=== PATIENT | female | born 1945 | race Caucasian/White ===

== ENCOUNTER 2018-08-21 01:16 | Emergency (ER) | payer MEDICAID, MEDICARE ==
[2018-08-21] MEDS ORDERED: Morphine 2 mg/ml ISec ONE (01:40)
[2018-08-21 01:43] VITALS: TEMP 97.8
[2018-08-21] MEDS ORDERED: Morphine 2 mg/ml ISec IVP STA (01:43)
--- NOTE | 2018-08-21 01:52 | ED PDOC ---
Arrival/HPI - General Chief Complaint: Abdominal Pain Time Seen by Provider: 08/21/18 01:29 Historian: Patient, Family (Daughter) - History of Present Illness Narrative History of Present Illness (Text): 08/21/18 01:45 A 72 year old female, whose past medical history includes end stage renal disease, hypertension, and a recent kidney transplant in the [place] in March 2018, presents to the emergency department complaining of chest and back pain after taking predisone and cardizem tablets prescribed by her primary care doctor.Discomfort began in the upper abdomen/chest area. Patient also reports she began experiencing nausea and vomiting.Some mild SOB.Patient denies any fever, chills, diarrhea, urinary symptoms, neck pain, headache, dizziness, or any other complaints. Time/Duration: Other (earlier tonight) Symptom Onset: Gradual Symptom Course: Unchanged Activities at Onset: Light Context: Home Past Medical History - Provider Review Nursing Documentation Reviewed: Yes - Infectious Disease Hx of Infectious Diseases: None - Reproductive Menopause: Yes - Cardiac Hx Hypertension: Yes - Pulmonary Hx Respiratory Disorders: No - Neurological Hx Neurological Disorder: No - HEENT Hx HEENT Disorder: Yes Hx Cataracts: Yes (bilateral) - Renal Hx Renal Disorder: Yes - Endocrine/Metabolic Hx Hypothyroidism: Yes - Hematological/Oncological Hx Anemia: Yes - Integumentary Hx Dermatological Disorder: No - Musculoskeletal/Rheumatological Hx Arthritis: Yes Hx Osteoporosis: Yes - Gastrointestinal Hx Gastrointestinal Disorders: Yes Hx Gastroesophageal Reflux: Yes - Genitourinary/Gynecological Hx Genitourinary Disorders: No - Psychiatric Hx Substance Use: No - Surgical History Hx Appendectomy: Yes Hx Coronary Stent: Yes - Anesthesia Hx Anesthesia: Yes Hx Anesthesia Reactions: No Hx Malignant Hyperthermia: No - Suicidal Assessment Feels Threatened In Home Enviroment: No Family/Social History - Physician Review Nursing Documentation Reviewed: Yes Family/Social History: Unknown Family HX Smoking Status: Former Smoker Hx Alcohol Use: No Hx Substance Use: No Hx Substance Use Treatment: No Allergies/Home Meds Allergies/Adverse Reactions: Allergies Penicillins Allergy (Verified 08/21/18 01:44) ANGIOEDEMA Home Medications: Home Meds Medication Instructions Recorded Confirmed Apixaban [Eliquis] 1 tab PO DAILY 08/21/18 08/21/18 Diltiazem HCl [Diltiazem 24Hr Cd] 1 tab PO DAILY 08/21/18 08/21/18 Gabapentin [Neurontin] 1 tab PO DAILY 08/21/18 08/21/18 Pantoprazole Sodium [Protonix] 1 tab PO DAILY 08/21/18 08/21/18 Prednisolone [Millipred] 1 tab PO DAILY 08/21/18 08/21/18 Tacrolimus [Prograf Cap] 1 tab PO DAILY 08/21/18 08/21/18 cloNIDine [Catapres (RENAL)] 1 tab PO DAILY 08/21/18 08/21/18 cloNIDine [Catapres] 1 tab PO DAILY 08/21/18 08/21/18 Review of Systems - Physician Review All systems were reviewed & negative as marked: Yes - Review of Systems Constitutional: absent: Fevers, Night Sweats Respiratory: absent: SOB Cardiovascular: Chest Pain Gastrointestinal: Abdominal Pain, Nausea, Vomiting. absent: Diarrhea Musculoskeletal: Back Pain. absent: Neck Pain Neurological: absent: Headache, Dizziness Physical Exam Vital Signs Reviewed: Yes Vital Signs Temp Pulse Resp BP 08/21/18 01:29 97.8 F 97 H 19 142/66 Temperature: Afebrile Blood Pressure: Normal Pulse: Tachycardic Respiratory Rate: Normal Appearance: Positive for: Well-Appearing, Non-Toxic, Comfortable Pain Distress: None Mental Status: Positive for: Alert and Oriented X 3 - Systems Exam Head: Present: Atraumatic, Normocephalic Pupils: Present: PERRL Extroacular Muscles: Present: EOMI Conjunctiva: Present: Normal Mouth: Present: Moist Mucous Membranes Neck: Present: Normal Range of Motion Respiratory/Chest: Present: Clear to Auscultation, Good Air Exchange. No: Respiratory Distress, Accessory Muscle Use Cardiovascular: Present: Regular Rate and Rhythm, Normal S1, S2. No: Murmurs Abdomen: Present: Tenderness (+tenderness to palpation to epigastric area), Normal Bowel Sounds. No: Distention, Peritoneal Signs, Rebound, Guarding, McBurney's Point Tender, Rovsing's Sign Present, Hernias, Feeding Tubes, Ostomy Tubes, Mass/Organomegaly, Scars Back: Present: Normal Inspection Upper Extremity: Present: Normal Inspection. No: Cyanosis, Edema Lower Extremity: Present: Normal Inspection. No: Edema Neurological: Present: GCS=15, CN II-XII Intact, Speech Normal Skin: Present: Warm, Dry, Normal Color. No: Rashes Psychiatric: Present: Alert, Oriented x 3, Normal Insight, Normal Concentration Medical Decision Making ED Course and Treatment: 08/21/18 01:45 Impression: 72 year old female presenting to the emergency department for complaining of abdominal discomfort. Differential Diagnosis included but are not limited to: gastritis vs. biliary colic Plan: -- EKG -- Labs -- CBC -- COAGs -- Chest Xray -- Aspirin -- Morphine -- Reassess and disposition Prior Visits: Notes and results from previous visits were reviewed. Progress Notes: 08/21/18 03:15 Chest-Xray shows slight increased interstitial markings. EKG: Ordered, reviewed, and independently interpreted the EKG. Rate : 98 BPM Rhythm : NSR Interpretation : LVH, No ST-segment elevations or depressions. 08/21/18 04:[address] Joseph who accepts patient for admission and requests Dr. Bailey on consult. - RAD Interpretation Radiology Orders: 08/21/18 01:44 CHEST PORTABLE [RAD] Stat - Medication Orders Current Medication Orders: Discontinued Medications Aspirin (Aspirin) 325 mg PO ONCE STA Stop: 08/21/18 01:44 Morphine Sulfate (Morphine) 2 mg IVP STAT STA Stop: 08/21/18 01:44 - Scribe Statement The provider has reviewed the documentation as recorded by the Noe Vuong All medical record entries made by the Marysolibdereje were at my direction and personally dictated by me. I have reviewed the chart and agree that the record accurately reflects my personal performance of the history, physical exam, medical decision making, and the department course for this patient. I have also personally directed, reviewed, and agree with the discharge instructions and disposition. Disposition/Present on Arrival - Present on Arrival Any Indicators Present on Arrival: No History of DVT/PE: No History of Uncontrolled Diabetes: No Urinary Catheter: No History of Decub. Ulcer: No History Surgical Site Infection Following: None - Disposition Have Diagnosis and Disposition been Completed?: Yes Diagnosis: Chest pain, CHF (congestive heart failure) Disposition: HOME/ ROUTINE Disposition Time: 04:50 Patient Plan: Observation Patient Problems: Current Active Problems Problem Status Onset CHF (congestive heart failure) Acute Chest pain Acute Condition: STABLE
[2018-08-21 02:24] LABS: HEMOGLOBIN 10.3 g/dL (12.0-16.0); MEAN CELL VOLUME 78.4 fl (80.0-105.0); MEAN CORPUSCULAR HEMOGLOBIN 25.6 pg (25.0-35.0); MEAN CORPUSCULAR HGB CONC 32.6 g/dl (31.0-37.0); MEAN PLATELET VOLUME 9.1 fl (7.0-11.0); RBC 4.03 10^6/uL (3.5-6.1); RED CELL DISTRIBUTION WIDTH 17.2 % (11.5-14.5); WHITE BLOOD COUNT 14.5 10^3/ul (4.5-11.0)
[2018-08-21 02:28] LABS: INR 1.35; PARTIAL THROMBOPLASTIN TIME 27.3 Seconds (25.1-36.5); PROTHROMBIN TIME 15.5 SECONDS (9.4-12.5)
[2018-08-21 02:52] LABS: TROPONIN I 0.05 ng/mL
[2018-08-21 03:40] LABS: ALB/GLOB RATIO 1.1 (1.1-1.8); ALBUMIN 4.2 g/dL (3.0-4.8); CALCIUM 11.1 mg/dL (8.4-10.5)
[2018-08-21 04:41] VITALS: PULSE 90; RESP 18; O2SAT 99
[2018-08-21 05:08] VITALS: BP 158/60
--- NOTE | 2018-08-21 09:37 | RAD ---
Date of service: 08/21/2018 HISTORY: PAIN COMPARISON: 11/29/2012 FINDINGS: LUNGS: No active pulmonary disease. PLEURA: No significant pleural effusion identified, no pneumothorax apparent. CARDIOVASCULAR: Normal. OSSEOUS STRUCTURES: No significant abnormalities. VISUALIZED UPPER ABDOMEN: Normal. OTHER FINDINGS: None. IMPRESSION: No active disease.
--- NOTE | 2018-08-21 10:10 | CARD ---
APPROVED REPORT Date of service: 08/21/2018 EKG Measurement Heart [id number] <Conclusion> Normal sinus rhythm Possible Left atrial enlargement Left ventricular hypertrophy. Non Specific ST-T Changes. Unsteady Baseline.
--- NOTE | 2018-08-21 12:07 | US ---
Date of service: 08/21/2018 HISTORY: pain COMPARISON: None. TECHNIQUE: Sonographic evaluation of the abdomen. FINDINGS: LIVER: Measures 15.7 cm. Mild diffusely increased echogenicity of the liver parenchyma. Consistent with fatty infiltration. No mass. No biliary ductal dilatation. GALLBLADDER: Status post cholecystectomy COMMON BILE DUCT: Measures 9 mm. Consistent with patient age and history of cholecystectomy. PANCREAS: Unremarkable as visualized. No mass. No ductal dilatation. RIGHT KIDNEY: Measures 7.2cm. Diffuse cortical thinning and increased cortical echogenicity.. No calculus or hydronephrosis. Upper pole cortical cyst, 1.0 x 1.2 x 1.5 cm. Mid renal cortical cyst, 1.2 cm. No solid mass.. LEFT KIDNEY: Measures 9.5cm. Diffuse cortical thinning and increased cortical echogenicity.. No calculus or hydronephrosis. Multiple cortical cysts. Upper pole 2.3 cm and 2.1 cm. Mid pole 2.7 cm. Lower pole 1.6 cm. No solid mass. SPLEEN: Normal in size and contour. No mass. AORTA: No aneurysmal dilatation. IVC: Unremarkable. OTHER FINDINGS: None. IMPRESSION: Status post cholecystectomy. Bilateral renal cortical thinning, diffuse, with increased cortical echogenicity, consistent with medical renal disease. Likely chronic. Bilateral renal cysts. Fatty infiltration of the liver. The preliminary findings for this examination were reported by [facility] at 4:03 a.m. on 08/21/2018. There is concurrence of this report with the preliminary findings.
== END 2018-08-21 07:12 | disposition home or self-care (01) ==
LOC: ED 01:16 → ERH 04:03 → UNDOADMOB 04:03 → ERH 04:46 → 2RNO 05:13 → ED 07:12
DX: I50.9 Heart failure, unspecified (principal); R07.9 Chest pain, unspecified; I12.0 Hypertensive chronic kidney disease with stage 5 chronic kidney disease or end stage renal disease; N18.6 End stage renal disease; Z94.0 Kidney transplant status; Z87.891 Personal history of nicotine dependence; E03.9 Hypothyroidism, unspecified
CPT/HCPCS: 71045; 76700; 80053; 82550; 83615; 83690; 83880; 84484; 85027; 85610; 85730; 93005; 96374; 96375; 99283; J1940; J2270; J2405